=== PATIENT | male | born 1960 | race American Indian/Alaskan Native ===

== ENCOUNTER 2017-12-27 18:53 | Emergency (ER) | payer MEDICAID, OTHER ==
[2017-12-27 18:54] VITALS: BMI 74.7
[2017-12-27] MEDS ORDERED: Morphine 4 mg/ml ISec IVP STA ×2 (19:19→21:08)
[2017-12-27 19:45] LABS: BASO # 0.03 K/mm3 (0.0-2.0); BASO % 0.3 % (0.0-3.0); EOS # 0.2 (0.0-0.7); EOS % 2.3 % (1.5-5.0); GRAN # 5.43 (1.4-6.5); GRAN % 62.2 % (50.0-68.0); HEMOGLOBIN 12.6 g/dL (14.0-18.0); LYMPH # 2.6 (1.2-3.4); LYMPH % 29.7 % (22.0-35.0); MEAN CELL VOLUME 84.5 fl (80.0-105.0); MEAN CORPUSCULAR HEMOGLOBIN 27.2 pg (25.0-35.0); MEAN CORPUSCULAR HGB CONC 32.1 g/dl (31.0-37.0); MEAN PLATELET VOLUME 8.5 fl (7.0-11.0); MONO # 0.5 (0.1-0.6); MONO % 5.5 % (1.0-6.0); RBC 4.64 10^6/uL (3.5-6.1); WHITE BLOOD COUNT 8.7 10^3/ul (4.5-11.0)
[2017-12-27] MEDS ORDERED: Lidocaine 1% Inj (20ml) IJ STA (19:46)
[2017-12-27 19:56] LABS: INR 0.99; PARTIAL THROMBOPLASTIN TIME 28.9 Seconds (25.1-36.5); PROTHROMBIN TIME 11.3 SECONDS (9.4-12.5)
[2017-12-27 19:59] LABS: ALB/GLOB RATIO 1.3 (1.1-1.8); ALBUMIN 4.8 g/dL (3.0-4.8); ALT/SGPT 33 U/L (7-56); AST/SGOT 39 U/L (17-59); BLOOD UREA NITROGEN 20 mg/dL (7-21); CALCIUM 9.5 mg/dL (8.4-10.5); GFR NON-AFRICAN AMERICAN > 60
[2017-12-27] MEDS ORDERED: Phenylephrine for priapism 0.1 mg/mL Syringe IN-CAVERNO SCH ×2 (20:00→20:14)
--- NOTE | 2017-12-27 20:15 | ED PDOC ---
Arrival/HPI - General Chief Complaint: Male Genitourinary Time Seen by Provider: 12/27/17 19:05 Historian: Patient - History of Present Illness Narrative History of Present Illness (Text): 12/27/17 20:12 57 year old male, whose past medical history includes asthma, diabetes, and substance abuse, presents to the emergency department for evaluation, status post a prolonged erection. Patient had erectile dysfunction treatment this morning, and reports having a prolonged erection ever since. Patient states having had an aspiration at his previous institution, but signed himself out. Patient denies any fevers, chills, headache, dizziness, chest pain, shortness of breath, cough, abdominal pain, nausea, vomiting, diarrhea, back pain, neck pain, or any other complaint. Time/Duration: 24 hours Past Medical History - Provider Review Nursing Documentation Reviewed: Yes - Infectious Disease Hx of Infectious Diseases: None - Cardiac Hx Cardiac Disorders: No Hx Hypertension: No - Pulmonary Hx Tuberculosis: No - Neurological HX Cerebrovascular Accident: No Hx Seizures: No - Endocrine/Metabolic Hx Diabetes Mellitus Type 2: Yes - Hematological/Oncological Hx Cancer: No - Genitourinary/Gynecological Hx Sexually Transmitted Diseases: No - Psychiatric Hx Depression: Yes ([place]) Hx Substance Use: Yes - Surgical History Other/Comment: Right wrist surgery 2008 - Anesthesia Hx Anesthesia: Yes Hx Anesthesia Reactions: No Family/Social History - Physician Review Nursing Documentation Reviewed: Yes Family/Social History: No Known Family HX Smoking Status: Unknown If Ever Smoked Hx Alcohol Use: Yes Hx Substance Use: Yes Substance used: heroine 3 days ago Allergies/Home Meds Allergies/Adverse Reactions: Allergies No Known Allergies Allergy (Unverified 04/02/15 16:08) Home Medications: Home Meds Medication Instructions Recorded Confirmed Albuterol 0.083% [Albuterol 0.083% 2 puff INH Q12 04/02/15 04/02/15 Inhal Tayla (2.5 mg/3 ml) UD] Quetiapine Fumarate [Seroquel] 1 tab PO DAILY 04/02/15 04/02/15 RX: Fluticasone/Salmeterol [Advair 2 puff INH DAILY 04/02/15 04/02/15 500-50 Diskus] RX: MetFORMIN [glucoPHAGE] 1 tab PO DAILY 04/02/15 04/02/15 Albuterol HFA [Ventolin HFA 90 0.09 mg IH PRN PRN 12/14/15 12/14/15 mcg/actuation (8 g)] MetFORMIN [glucOPHAGE] 1,000 mg PO DAILY 12/14/15 12/14/15 Quetiapine Fumarate [Seroquel] 200 mg PO DAILY 12/14/15 12/14/15 buPROPion SR [Wellbutrin SR 150 MG] 150 mg PO DAILY 12/14/15 12/14/15 Review of Systems - Physician Review All systems were reviewed & negative as marked: Yes - Review of Systems Constitutional: absent: Fevers, Night Sweats Respiratory: absent: SOB, Cough Cardiovascular: absent: Chest Pain Gastrointestinal: absent: Abdominal Pain, Diarrhea, Nausea, Vomiting Musculoskeletal: absent: Back Pain, Neck Pain Neurological: absent: Headache, Dizziness Physical Exam Vital Signs Reviewed: Yes Vital Signs Temp Pulse Resp BP Pulse Ox 12/27/17 19:02 98.4 F 107 H 18 148/85 100 Temperature: Afebrile Blood Pressure: Normal Pulse: Tachycardic Respiratory Rate: Normal Appearance: Positive for: Well-Appearing, Non-Toxic, Comfortable Pain Distress: None Mental Status: Positive for: Alert and Oriented X 3 Finger Stick Blood Glucose: 109 - Systems Exam Head: Present: Atraumatic, Normocephalic Pupils: Present: PERRL Extroacular Muscles: Present: EOMI Conjunctiva: Present: Normal Mouth: Present: Moist Mucous Membranes Neck: Present: Normal Range of Motion Respiratory/Chest: Present: Clear to Auscultation, Good Air Exchange. No: Respiratory Distress, Accessory Muscle Use Cardiovascular: Present: Regular Rate and Rhythm, Normal S1, S2. No: Murmurs Abdomen: No: Tenderness, Distention, Peritoneal Signs Genitourinary Male: Present: Other (Erection) Back: Present: Normal Inspection Upper Extremity: Present: Normal Inspection. No: Cyanosis, Edema Lower Extremity: Present: Normal Inspection. No: Edema Neurological: Present: GCS=15, CN II-XII Intact, Speech Normal Skin: Present: Warm, Dry, Normal Color. No: Rashes Psychiatric: Present: Alert, Oriented x 3, Normal Insight, Normal Concentration Medical Decision Making ED Course and Treatment: 12/27/17 20:18 Impression: 57 year old male presents with prolonged erection. Plan: -- EKG -- Chest X-ray -- Labs -- Lidocaine -- Morphine -- Phenlylephrin -- Reassess and disposition Prior Visits: Notes and results from previous visits were reviewed. Progress Notes: 12/28/17 00:45 case didscussed with urology shampoo person, dr faulkner. came in bedside, aspiration successful. dc home with ice packs scrotal support outpt fu. return precautions - Lab Interpretations Lab Results: 12/27/17 19:39 12/27/17 19:39 Lab Results 12/27/17 19:39: Alcohol, Quantitative 129 H 12/27/17 19:39: Sodium 140, Potassium 3.9, Chloride 99, Carbon Dioxide 26, Anion Gap 18, BUN 20, Creatinine 1.1, Est GFR ( Amer) > 60, Est GFR (Non-Af Amer) > 60, Random Glucose 118 H, Calcium 9.5, Total Bilirubin 0.4, AST 39, ALT 33, Alkaline Phosphatase 63, Total Protein 8.5 H, Albumin 4.8, Globulin 3.6, Albumin/Globulin Ratio 1.3 12/27/17 19:39: PT 11.3, INR 0.99, APTT 28.9 12/27/17 19:39: WBC 8.7 D, RBC 4.64, Hgb 12.6 L, Hct 39.2 L, MCV 84.5, MCH 27.2, MCHC 32.1, RDW 13.0, Plt Count 218, MPV 8.5, Gran % 62.2, Lymph % (Auto) 29.7, [place] % (Auto) 5.5, Eos % (Auto) 2.3, Baso % (Auto) 0.3, Gran # 5.43, Lymph # (Auto) 2.6, [place] # (Auto) 0.5, Eos # (Auto) 0.2, Baso # (Auto) 0.03 12/27/17 19:00: Blood Type Pending, Antibody Screen Pending, BBK History Checked No verified bt - RAD Interpretation Radiology Orders: 12/27/17 19:19 CHEST PORTABLE [RAD] Stat - Medication Orders Current Medication Orders: Phenylephrine HCl (Phenylephrine For Priapism) 0.1 mg IN-CAVERNO Q5MIN LISET Stop: 01/07/18 20:01 Discontinued Medications Lidocaine HCl (Lidocaine 1% (20ml)) 1 ml IJ STAT STA Stop: 12/27/17 19:47 Morphine Sulfate (Morphine) 4 mg IVP STAT STA Stop: 12/27/17 19:20 Last Admin: 12/27/17 19:24 Dose: 4 mg MAR Pain Assessment Document 12/27/17 19:24 EQ (Rec: 12/27/17 19:24 EQ [id number]) Pain Reassessment Is this a pain reassessment? No Sleep Is patient sleeping during reassessment? No Presence of Pain Presence of Pain Yes IVP Administration Document 12/27/17 19:24 EQ (Rec: 12/27/17 19:24 EQ [id number]) Charges for Administration # of IVP Administrations 1 - Scribe Statement The provider has reviewed the documentation as recorded by the Scribe Fareed Kirby Provider Scribe Attestation: All medical record entries made by the Scribe were at my direction and personally dictated by me. I have reviewed the chart and agree that the record accurately reflects my personal performance of the history, physical exam, medical decision making, and the department course for this patient. I have also personally directed, reviewed, and agree with the discharge instructions and disposition. Disposition/Present on Arrival - Present on Arrival Any Indicators Present on Arrival: No History of DVT/PE: No History of Uncontrolled Diabetes: No Urinary Catheter: No History of Decub. Ulcer: No History Surgical Site Infection Following: None - Disposition Have Diagnosis and Disposition been Completed?: Yes Diagnosis: Priapism Disposition: HOME/ ROUTINE Disposition Time: 22:00 Condition: STABLE Discharge Instructions (ExitCare): Priapism Referrals: Isac Faulkner MD [Staff Provider] - Follow up with primary Forms: [employer] (Indonesian)
--- NOTE | 2017-12-27 20:24 | CP.PCM.CON ---
History of Present Illness - History of Present Illness History of Present Illness: Urology Consult 57M with a PMH of depression and etoh abuse. He want to a clinic to have a "ED procedure done". He described that his penis was injected which caused an erection immediately. The erection never subsided so in the afternoon the "stuck needles in it" then he left against medical advice and arrived at [facility] [place]. He currently complains of penile discomfort. .He is able to urinate however it is laborious He denies fevers chills chest pain or SOB. PMH: ETOH, Psych PSH: Hand Surg ALL: NKDA Review of Systems - Review of Systems Review of Systems: 12 point review of symptoms conducted and negative aside from an intractable erection Past Patient History - Infectious Disease Hx of Infectious Diseases: None - Past Social History Smoking Status: Unknown If Ever Smoked - CARDIAC Hx Cardiac Disorders: No Hx Hypertension: No - PULMONARY Hx Tuberculosis: No - NEUROLOGICAL HX Cerebrovascular Accident: No Hx Seizures: No - ENDOCRINE/METABOLIC Hx Diabetes Mellitus Type 2: Yes - HEMATOLOGICAL/ONCOLOGICAL Hx Cancer: No Hx Human Immunodeficiency Virus (HIV): No - GENITOURINARY/GYNECOLOGICAL Hx Sexually Transmitted Disorders: No - PSYCHIATRIC Hx Depression: Yes ([place]) Hx Substance Use: Yes - SURGICAL HISTORY Hx Surgeries: No Other/Comment: Right wrist surgery 2007 - ANESTHESIA Hx Anesthesia: Yes Hx Anesthesia Reactions: No Meds Allergies/Adverse Reactions: Allergies Allergy/AdvReac Type Severity Reaction Status Date / Time No Known Allergies Allergy Unverified 04/02/15 16:08 - Medications Medications: Current Medications Phenylephrine HCl (Phenylephrine For Priapism) 0.1 mg IN-CAVERNO Q5MIN LISET Stop: 01/07/18 20:01 Physical Exam - Constitutional Appears: Non-toxic, No Acute Distress - Head Exam Head Exam: ATRAUMATIC, NORMOCEPHALIC - Eye Exam Eye Exam: EOMI, Normal appearance - ENT Exam ENT Exam: Mucous Membranes Moist - Respiratory Exam Respiratory Exam: NORMAL BREATHING PATTERN - Exam Additional comments: Erect tender penis - Neurological Exam Neurological exam: Alert, Oriented x3 - Psychiatric Exam Psychiatric exam: Normal Affect, Normal Mood - Skin Skin Exam: Dry, Intact Results - Vital Signs Recent Vital Signs: Last Vital Signs Temp 98.4 F 12/27/17 19:02 Pulse 107 H 12/27/17 19:02 Resp 18 12/27/17 19:02 BP 148/85 12/27/17 19:02 Pulse Ox 100 12/27/17 19:02 - Labs Result Diagrams: 12/27/17 19:39 12/27/17 19:39 Labs: Laboratory Results - last 24 hr 12/27/17 12/27/17 12/27/17 19:00 19:39 19:39 WBC 8.7 D RBC 4.64 Hgb 12.6 L Hct 39.2 L MCV 84.5 MCH 27.2 MCHC 32.1 RDW 13.0 Plt Count 218 MPV 8.5 Gran % 62.2 Lymph % (Auto) 29.7 [place] % (Auto) 5.5 Eos % (Auto) 2.3 Baso % (Auto) 0.3 Gran # 5.43 Lymph # (Auto) 2.6 [place] # (Auto) 0.5 Eos # (Auto) 0.2 Baso # (Auto) 0.03 PT 11.3 INR 0.99 APTT 28.9 Sodium Potassium Chloride Carbon Dioxide Anion Gap BUN Creatinine Est GFR ( Amer) Est GFR (Non-Af Amer) Random Glucose Calcium Total Bilirubin AST ALT Alkaline Phosphatase Total Protein Albumin Globulin Albumin/Globulin Ratio Alcohol, Quantitative BBK History Checked No verified bt 12/27/17 12/27/17 19:39 19:39 WBC RBC Hgb Hct MCV MCH MCHC RDW Plt Count MPV Gran % Lymph % (Auto) [place] % (Auto) Eos % (Auto) Baso % (Auto) Gran # Lymph # (Auto) [place] # (Auto) Eos # (Auto) Baso # (Auto) PT INR APTT Sodium 140 Potassium 3.9 Chloride 99 Carbon Dioxide 26 Anion Gap 18 BUN 20 Creatinine 1.1 Est GFR ( Amer) > 60 Est GFR (Non-Af Amer) > 60 Random Glucose 118 H Calcium 9.5 Total Bilirubin 0.4 AST 39 ALT 33 Alkaline Phosphatase 63 Total Protein 8.5 H Albumin 4.8 Globulin 3.6 Albumin/Globulin Ratio 1.3 Alcohol, Quantitative 129 H BBK History Checked Assessment & Plan - Assessment and Plan (Free Text) Assessment: 57M w/ Priaprism Will attempt bedside drainage with attending Further recs per Dr. Rivas
[2017-12-27 23:12] VITALS: BP 137/74; PULSE 87; RESP 19; TEMP 98.3; O2SAT 97
--- NOTE | 2017-12-28 09:44 | OP ---
PROCEDURE DATE: 12/27/2017 DESCRIPTION OF PROCEDURE: Mr. Barksdale is a 57 -year-old male who presented to [facility] with complaints of an erection for nearly 12 hours, . On receiving the phone call, I examined this patient hospital on drugs. Given the findings, only treatment was to irrigate the penis and injection would require operating room for . I explained the risks, benefits and alternatives of the irrigation, injection and potential chance including irreversible erectile dysfunction, penile curvature, penile pain, hematoma formation and infection, bleeding and inability to irrigate the . Patient finally informed consent and following prepped and draped in usual sterile fashion. We performed a penile ring block using 2% lidocaine without epinephrine was anesthetized, I placed a 20-Armenian needle in to left corpus cavernosum, dark blood was evacuated from the corpus and the penis somewhat however not completely. I irrigated the corpus with approximately 50 mL of sterile saline and by placing the sterile saline removing in sequential fashion, was able to the penis further. However again we are not able to achieve the complete at this point. We injected 500 mcg aliquots x3, a total of 1500 mcg and ultimately the patient's penis after observation approximately 45 minutes following the procedure, the erection did not return. I explained to the patient the penis would be painful, swollen and discolored following this and this was normal. Given the microtrauma experienced, I told the patient to seek immediate emergency and to follow up with me in the office. I explained the patient the natural history of priapism and how the ischemic nature of the priapism particularly in the prolonged state of could damage the smooth muscle tissue of the corpus causing erectile dysfunction. Patient understood. I explained same to his who understood as well and following all of this, the patient was ultimately discharged home in good, stable condition. Isac Rivas M.D. [facility] # [id number]
--- NOTE | 2017-12-28 10:50 | RAD ---
HISTORY: preop COMPARISON: Chest x-ray performed 12/14/15 TECHNIQUE: Chest, one view. FINDINGS: Examination limited by habitus and hypoinflation. LUNGS: No focal consolidation. Please note that chest x-ray has limited sensitivity for the detection of pulmonary masses. PLEURA: No significant pleural effusion identified. No definite pneumothorax . CARDIOVASCULAR: Heart size appears top normal. OSSEOUS STRUCTURES: Degenerative changes of the spine. VISUALIZED UPPER ABDOMEN: Unremarkable. OTHER FINDINGS: None. IMPRESSION: No acute findings. See above.
== END 2017-12-27 23:14 | disposition home or self-care (01) ==
LOC: ED 18:53
DX: N48.30 Priapism, unspecified (principal); E11.9 Type 2 diabetes mellitus without complications
CPT/HCPCS: 71045; 80053; 80320; 85025; 85610; 85730; 86850; 86900; 96374; 96376; 99284; J2270